=== PATIENT | male | born 1970 | race Caucasian/White ===

== ENCOUNTER 2021-01-01 08:38 | Emergency (ER) | payer SELFPAY ==
[~2021-01-01] VITALS: Ht 170.2 cm; Wt 102.1 kg
[2021-01-01 08:39] VITALS: BP 161/110
--- NOTE | 2021-01-01 09:18 | NUR ---
50/M BIB SELF WITH C/O LEFT SIDED CHEST PAIN. STATES WHEN HE ARRIVED AT WORK THIS MORNING HE BEGAN EXPERIENCING "TINGLING CHEST PAIN." PATIENT STATING HE FEELS "SHAKY." PATIENT STATES PAIN IS NON RADIATING, DENIES TAKING ANYTHING FOR PAIN PRIOR TO ARRIVAL TO ED, DENIES SOB, V/D.
--- NOTE | 2021-01-01 10:15 | NUR ---
JUANCARLOS SWAB COLLECTED AND WALKED TO LAB.
[2021-01-01] MEDS ORDERED: MECL-303 PO (11:33)
--- NOTE | 2021-01-01 11:54 | NUR ---
Patient discharged with v/s stable. Written and verbal after care instructions ABOUT PALPITATIONS AND DIZZINESS given and explained. Patient alert, oriented and verbalized understanding of instructions. Ambulatory with steady gait. All questions addressed prior to discharge. ID band removed. Patient advised to follow up with PMD. Rx of MECLIZINE given. Patient educated on indication of medication including possible reaction and side effects. Opportunity to ask questions provided and answered.
[2021-01-01 12:02] VITALS: BP 135/88
== END 2021-01-01 11:54 | disposition home or self-care (01) ==
LOC: MED 08:38
DX: R00.2 Palpitations (principal); R42 Dizziness and giddiness; R53.1 Weakness; F12.10 Cannabis abuse, uncomplicated; Z20.822 Contact with and (suspected) exposure to COVID-19
CPT/HCPCS: 70450; 84484; 93005; 99285